=== PATIENT | male | born 1940 | race Caucasian/White ===

== ENCOUNTER 2017-04-12 20:12 | Inpatient (IN) | payer MEDICARE, OTHER ==
[~2017-04-12] VITALS: Ht 172.7 cm; Wt 94.2 kg
[~2017-04-12 20:12] MED LIST: ALLO100 PO; Ativan0.5 MG PO; Bisoprolol-Hct1 EAC2 PO; CLON.1 PO; LEVSOD100 PO; LOSARTAN POTAS100 MG PO; OMEPRAZOLE MAGN20 MG PO; RANI150
[2017-04-12] MEDS ORDERED: TERA5 (20:56)
[2017-04-12] MEDS ORDERED: ASPI81CH PO (20:56)
[2017-04-12 21:10] LABS: Hematocrit 33.2 % (37.0-53.0); Hemoglobin 11.2 g/dL (13.5-17.5); Mean Corpuscular HGB 29.7 pg (26.0-34.0); Mean Corpuscular HGB Conc 33.7 g/dL (31.5-36.5); Mean Corpuscular Volume 88 fL (80-100); Mean Platelet Volume 12.3 fL (9.1-12.4); Platelet Count 124 K/mm3 (150-400); RDW Coefficient Variation 14.8 % (11.7-14.2); Red Blood Cell Count 3.77 M/mm3 (4.30-5.90); White Blood Cell Count 7.35 K/mm3 (4.00-11.30)
[2017-04-12 21:17] LABS: International Normalized Ratio 1.18; Prothrombin Time Results 12.3 Sec (9.7-11.5)
[2017-04-12 21:30] LABS: Albumin, Blood 3.4 g/dL (3.4-5.0); Albumin/Globulin Ratio 0.8 (0.8-1.8); Bilirubin, Total 0.9 mg/dL (0.1-1.0); Calcium, Blood 8.8 mg/dL (8.5-10.1); Creatinine, Blood 1.41 mg/dL (0.60-1.20); Potassium, Blood 3.3 mmol/L (3.5-5.5); Total Protein, Blood 7.4 g/dL (6.4-8.2); Troponin I 0.106 ng/mL (0.000-0.040)
[2017-04-12 21:34] LABS: BAND PERCENT MAN 3 % (0-8); BASOPHILS ABSOLUTE MAN 0.14 K/mm3 (0.00-0.23); BASOPHILS PERCENT MAN 2 % (0-2); EOSINOPHILS PERCENT MAN 0 % (0-6); LYMPHOCYTES ABSOLUTE MAN 0.36 K/mm3 (0.84-5.20); LYMPHOCYTES PERCENT MAN 5 % (21-46); MONOCYTES ABSOLUTE MAN 0.51 K/mm3 (0.16-1.47); MONOCYTES PERCENT MAN 7 % (4-13); NEUTROPHILS ABSOLUTE MAN 6.32 K/mm3 (1.96-9.15); SEG NEUTROPHILS PERCENT MAN 83 % (41-73); TOTAL CELLS COUNTED 100
[2017-04-12 21:45] LABS: Influenza A Negative (NEGATIVE); Influenza B Negative (NEGATIVE)
[2017-04-12 22:04] LABS: pH Blood Arterial 7.45 (7.35-7.45)
[2017-04-13] MEDS ORDERED: ALLO300 PO (00:25)
[2017-04-13] MEDS ORDERED: RANI150 PO (00:30)
[2017-04-13] MEDS ORDERED: TERA5 PO (00:33)
[2017-04-13 04:49] LABS: BASOPHILS ABSOLUTE AUTO 0.01 K/mm3 (0.00-0.23); BASOPHILS PERCENT AUTO 0 % (0-2); EOSINOPHILS ABSOLUTE AUTO 0.01 K/mm3 (0.00-0.68); EOSINOPHILS PERCENT AUTO 0 % (0-6); Hematocrit 32.4 % (37.0-53.0); IMMATURE GRAN ABSOLUTE AUTO 0.02 K/mm3 (0.00-0.10); IMMATURE GRAN PERCENT AUTO 0 % (0-1); LYMPHOCYTES ABSOLUTE AUTO 0.57 K/mm3 (0.84-5.20); LYMPHOCYTES PERCENT AUTO 10 % (21-46); MONOCYTES ABSOLUTE AUTO 0.96 K/mm3 (0.16-1.47); MONOCYTES PERCENT AUTO 16 % (4-13); Mean Corpuscular HGB 30.1 pg (26.0-34.0); Mean Corpuscular Volume 89 fL (80-100); Mean Platelet Volume 11.8 fL (9.1-12.4); NEUTROPHILS PERCENT AUTO 74 % (41-73); Platelet Count 114 K/mm3 (150-400); RDW Coefficient Variation 14.9 % (11.7-14.2); RDW Standard Deviation 48.5 fL (35.1-46.3); Red Blood Cell Count 3.66 M/mm3 (4.30-5.90); White Blood Cell Count 5.97 K/mm3 (4.00-11.30)
[2017-04-13 05:10] LABS: Bun/Creatinine Ratio 16.9 (12.0-20.0); Calcium, Blood 8.1 mg/dL (8.5-10.1); Creatine Kinase MB 1.4 ng/mL (0.0-3.6); Creatine Kinase MB Index 0.5 (0.0-4.0); Creatinine, Blood 1.3 mg/dL (0.60-1.20); Potassium, Blood 3.4 mmol/L (3.5-5.5); Troponin I 0.075 ng/mL (0.000-0.040)
[2017-04-13 12:27] LABS: Creatine Kinase MB Index 0.8 (0.0-4.0); Troponin I 0.208 ng/mL (0.000-0.040)
[2017-04-14 05:08] LABS: BASOPHILS PERCENT AUTO 0 % (0-2); EOSINOPHILS ABSOLUTE AUTO 0.01 K/mm3 (0.00-0.68); EOSINOPHILS PERCENT AUTO 0 % (0-6); Hematocrit 30.2 % (37.0-53.0); Hemoglobin 10.2 g/dL (13.5-17.5); IMMATURE GRAN ABSOLUTE AUTO 0.01 K/mm3 (0.00-0.10); IMMATURE GRAN PERCENT AUTO 0 % (0-1); LYMPHOCYTES ABSOLUTE AUTO 0.74 K/mm3 (0.84-5.20); LYMPHOCYTES PERCENT AUTO 12 % (21-46); MONOCYTES ABSOLUTE AUTO 0.45 K/mm3 (0.16-1.47); MONOCYTES PERCENT AUTO 7 % (4-13); Mean Corpuscular HGB 29.8 pg (26.0-34.0); Mean Corpuscular HGB Conc 33.8 g/dL (31.5-36.5); Mean Corpuscular Volume 88 fL (80-100); Mean Platelet Volume 12.6 fL (9.1-12.4); NEUTROPHILS ABSOLUTE AUTO 4.97 K/mm3 (1.96-9.15); NEUTROPHILS PERCENT AUTO 80 % (41-73); Platelet Count 117 K/mm3 (150-400); RDW Standard Deviation 48.7 fL (35.1-46.3); Red Blood Cell Count 3.42 M/mm3 (4.30-5.90); White Blood Cell Count 6.18 K/mm3 (4.00-11.30)
[2017-04-14 05:37] LABS: Anion Gap 9 mmol/L (6-16); Blood Urea Nitrogen 20 mg/dL (8-24); Bun/Creatinine Ratio 17.1 (12.0-20.0); CO2, Blood 24 mmol/L (21-32); Calcium, Blood 7.6 mg/dL (8.5-10.1); Chloride, Blood 102 mmol/L (98-108); Creatinine, Blood 1.17 mg/dL (0.60-1.20); Glomerular Filtration Rate >60 (60-); Glucose, Blood 112 mg/dL (70-99); Potassium, Blood 3.3 mmol/L (3.5-5.5); Sodium, Blood 135 mmol/L (136-145)
[2017-04-15 05:59] LABS: Anion Gap 9 mmol/L (6-16); Blood Urea Nitrogen 18 mg/dL (8-24); Bun/Creatinine Ratio 16.1 (12.0-20.0); CO2, Blood 26 mmol/L (21-32); Calcium, Blood 8.1 mg/dL (8.5-10.1); Chloride, Blood 102 mmol/L (98-108); Creatinine, Blood 1.12 mg/dL (0.60-1.20); Glomerular Filtration Rate >60 (60-); Glucose, Blood 102 mg/dL (70-99); Potassium, Blood 3.3 mmol/L (3.5-5.5); Sodium, Blood 137 mmol/L (136-145)
[2017-04-16 05:30] LABS: BASOPHILS ABSOLUTE AUTO 0.01 K/mm3 (0.00-0.23); BASOPHILS PERCENT AUTO 0 % (0-2); EOSINOPHILS ABSOLUTE AUTO 0.13 K/mm3 (0.00-0.68); EOSINOPHILS PERCENT AUTO 2 % (0-6); Hematocrit 30.6 % (37.0-53.0); Hemoglobin 10.3 g/dL (13.5-17.5); IMMATURE GRAN ABSOLUTE AUTO 0.04 K/mm3 (0.00-0.10); IMMATURE GRAN PERCENT AUTO 1 % (0-1); LYMPHOCYTES ABSOLUTE AUTO 0.74 K/mm3 (0.84-5.20); LYMPHOCYTES PERCENT AUTO 13 % (21-46); MONOCYTES ABSOLUTE AUTO 0.76 K/mm3 (0.16-1.47); MONOCYTES PERCENT AUTO 13 % (4-13); Mean Corpuscular HGB Conc 33.7 g/dL (31.5-36.5); Mean Corpuscular Volume 89 fL (80-100); Mean Platelet Volume 12.7 fL (9.1-12.4); NEUTROPHILS ABSOLUTE AUTO 4.05 K/mm3 (1.96-9.15); NEUTROPHILS PERCENT AUTO 71 % (41-73); Platelet Count 149 K/mm3 (150-400); RDW Coefficient Variation 15.2 % (11.7-14.2); RDW Standard Deviation 50.1 fL (35.1-46.3); Red Blood Cell Count 3.43 M/mm3 (4.30-5.90); White Blood Cell Count 5.73 K/mm3 (4.00-11.30)
[2017-04-16 05:43] LABS: Albumin, Blood 2.8 g/dL (3.4-5.0); Anion Gap 8 mmol/L (6-16); Blood Urea Nitrogen 21 mg/dL (8-24); Bun/Creatinine Ratio 16.7 (12.0-20.0); CO2, Blood 29 mmol/L (21-32); Calcium, Blood 8.9 mg/dL (8.5-10.1); Chloride, Blood 102 mmol/L (98-108); Creatinine, Blood 1.26 mg/dL (0.60-1.20); Glomerular Filtration Rate 59 (60-); Glucose, Blood 97 mg/dL (70-99); Phosphorus, Blood 2.6 mg/dL (2.5-4.9); Potassium, Blood 3.3 mmol/L (3.5-5.5); Sodium, Blood 139 mmol/L (136-145)
[2017-04-17 05:51] LABS: BASOPHILS ABSOLUTE AUTO 0.01 K/mm3 (0.00-0.23); BASOPHILS PERCENT AUTO 0 % (0-2); EOSINOPHILS ABSOLUTE AUTO 0.18 K/mm3 (0.00-0.68); EOSINOPHILS PERCENT AUTO 3 % (0-6); Hematocrit 31.5 % (37.0-53.0); Hemoglobin 10.9 g/dL (13.5-17.5); IMMATURE GRAN ABSOLUTE AUTO 0.04 K/mm3 (0.00-0.10); IMMATURE GRAN PERCENT AUTO 1 % (0-1); LYMPHOCYTES ABSOLUTE AUTO 0.65 K/mm3 (0.84-5.20); LYMPHOCYTES PERCENT AUTO 12 % (21-46); MONOCYTES ABSOLUTE AUTO 0.57 K/mm3 (0.16-1.47); MONOCYTES PERCENT AUTO 10 % (4-13); Mean Corpuscular HGB 30.2 pg (26.0-34.0); Mean Corpuscular HGB Conc 34.6 g/dL (31.5-36.5); Mean Corpuscular Volume 87 fL (80-100); Mean Platelet Volume 11.9 fL (9.1-12.4); NEUTROPHILS ABSOLUTE AUTO 4.02 K/mm3 (1.96-9.15); NEUTROPHILS PERCENT AUTO 74 % (41-73); Platelet Count 153 K/mm3 (150-400); RDW Coefficient Variation 14.9 % (11.7-14.2); RDW Standard Deviation 47.3 fL (35.1-46.3); Red Blood Cell Count 3.61 M/mm3 (4.30-5.90); White Blood Cell Count 5.47 K/mm3 (4.00-11.30)
[2017-04-17 06:10] LABS: Anion Gap 8 mmol/L (6-16); Blood Urea Nitrogen 21 mg/dL (8-24); Bun/Creatinine Ratio 18.4 (12.0-20.0); CO2, Blood 27 mmol/L (21-32); Calcium, Blood 9.1 mg/dL (8.5-10.1); Chloride, Blood 102 mmol/L (98-108); Creatinine, Blood 1.14 mg/dL (0.60-1.20); Glomerular Filtration Rate >60 (60-); Glucose, Blood 104 mg/dL (70-99); Phosphorus, Blood 2.9 mg/dL (2.5-4.9); Potassium, Blood 3.4 mmol/L (3.5-5.5); Sodium, Blood 137 mmol/L (136-145)
[2017-04-17] MEDS ORDERED: Albuterol2.5 MG/0.5 INH (12:43)
[2017-04-17] MEDS ORDERED: CLOP75 PO (12:44)
[2017-04-17] MEDS ORDERED: ATOR40TA PO (12:44)
[2017-04-17] MEDS ORDERED: DULERA 200 MCG/13 GM (12:45)
[2017-04-17] MEDS ORDERED: SPIR50 PO (12:47)
[2017-04-17] MEDS ORDERED: TORSE20 PO (12:48)
[2017-04-17] MEDS ORDERED: LEVO750 PO (12:49)
[2017-04-17] MEDS ORDERED: POTA10T PO (12:49)
[2017-05-29] MEDS ORDERED: Aspirin EC81 MG PO (12:17)
[2017-05-29] MEDS ORDERED: VITAMIN D5000 UNI1 PO (12:21)
[2017-07-30] MEDS ORDERED: ELIQUIS5 MG PO (10:40)
[2017-07-30] MEDS ORDERED: Amiodarone HCl200 MG PO (10:40)
[2017-07-30] MEDS ORDERED: METO50 PO (10:41)
== END 2017-04-17 13:12 | disposition home or self-care (01) | DRG 193 ==
LOC: ER 20:12 → MEDS 22:32 → PCU 22:32 → MEDS 04-13 12:30
PROVIDERS: Family Medicine; Internal Medicine
DX: J18.9 Pneumonia, unspecified organism (principal); J96.01 Acute respiratory failure with hypoxia; I50.33 Acute on chronic diastolic (congestive) heart failure; N17.9 Acute kidney failure, unspecified; D69.6 Thrombocytopenia, unspecified; I24.8 Other forms of acute ischemic heart disease; N18.3 Chronic kidney disease, stage 3 (moderate); D63.1 Anemia in chronic kidney disease; I13.0 Hypertensive heart and chronic kidney disease with heart failure and stage 1 through stage 4 chronic kidney disease, or unspecified chronic kidney disease; E03.9 Hypothyroidism, unspecified; K21.9 Gastro-esophageal reflux disease without esophagitis; M10.9 Gout, unspecified; N40.0 Benign prostatic hyperplasia without lower urinary tract symptoms; F41.9 Anxiety disorder, unspecified; J45.909 Unspecified asthma, uncomplicated; I25.10 Atherosclerotic heart disease of native coronary artery without angina pectoris; I25.2 Old myocardial infarction; E87.6 Hypokalemia; I34.0 Nonrheumatic mitral (valve) insufficiency; Z86.010 Personal history of colon polyps; Z79.82 Long term (current) use of aspirin; Z79.899 Other long term (current) drug therapy; Z88.2 Allergy status to sulfonamides
CPT/HCPCS: 36415; 36600; 71020; 80048; 80053; 80069; 82550; 82553; 82803; 83605; 83880; 84145; 84484; 85007; 85025; 85027; 85610; 87040; 87070; 87205; 87449; 87804; 93005; 93010; 93306; 94640; 94760; 94762; 96361; 96365; 96368; 96372; 99285; J0360; J0456; J0696; J1650; J1940; J2405; J7030; J7050

== ENCOUNTER 2017-06-01 06:45 | Day surgery (SDC) | payer MEDICARE, OTHER ==
[~2017-06-01] VITALS: Ht 172.7 cm; Wt 90.5 kg
[~2017-06-01 06:45] MED LIST changes: +ALLO300 PO; +ASPI81CH PO; +ATOR40TA PO; +Albuterol2.5 MG/0.5 INH; +Aspirin EC81 MG PO; +CLOP75 PO; +DULERA 200 MCG/13 GM; +LEVO750 PO; +POTA10T PO; +RANI150 PO; +SPIR50 PO; +TERA5; +TERA5 PO; +TORSE20 PO; +VITAMIN D5000 UNI1 PO
[2017-06-01] MEDS ORDERED: AMLO5 PO (07:21)
[2017-06-01] MEDS ORDERED: LOSA50 PO (07:21)
[2017-07-30] MEDS ORDERED: Amiodarone HCl200 MG PO (10:40)
[2017-07-30] MEDS ORDERED: ELIQUIS5 MG PO (10:40)
[2017-07-30] MEDS ORDERED: METO50 PO (10:41)
== END 2017-06-01 09:30 | disposition home or self-care (01) ==
LOC: MHTC 06:45
DX: I25.10 Atherosclerotic heart disease of native coronary artery without angina pectoris (principal); I34.0 Nonrheumatic mitral (valve) insufficiency; R00.1 Bradycardia, unspecified; I13.0 Hypertensive heart and chronic kidney disease with heart failure and stage 1 through stage 4 chronic kidney disease, or unspecified chronic kidney disease; N18.9 Chronic kidney disease, unspecified; I50.30 Unspecified diastolic (congestive) heart failure; I27.29 Other secondary pulmonary hypertension; E03.9 Hypothyroidism, unspecified; Z79.899 Other long term (current) drug therapy; Z79.82 Long term (current) use of aspirin; Z88.2 Allergy status to sulfonamides; Z88.5 Allergy status to narcotic agent
CPT/HCPCS: 93458; 99152; C1769; C1894; J0360; J1644; J2250; J3010; J7030; Q9967

== ENCOUNTER → 2019-03-22 | Outpatient (CLI) | payer MEDICARE, OTHER ==
[~2019-03-22] MED LIST changes: +AMLO5 PO; +Amiodarone HCl200 MG PO; +Bisoprolol Fuma10 MG PO; +ELIQUIS5 MG PO; +LISI20 PO; +LOSA50 PO; +MAGNESIUM; +METO50 PO; +VITAMIN D; +ZYLOPRIM300 MG PO
[2019-03-22 20:04] LABS: Campylobacter Sp Not Detected (NOT DETECT)
[2019-03-22 20:05] LABS: Adenovirus F 40/41 Not Detected (NOT DETECT); Astrovirus Not Detected (NOT DETECT); Cryptosporidium Not Detected (NOT DETECT); Cyclospora Cayetanensis Not Detected (NOT DETECT); E. Coli O157 Not Detected (NOT DETECT); Entamoeba Histolytica Not Detected (NOT DETECT); Enteroaggregative E. coli-EAEC Not Detected (NOT DETECT); Enteropathogenic E. coli-EPEC Not Detected (NOT DETECT); Enterotoxigenic E. coli-ETEC Not Detected (NOT DETECT); Giardia Lamblia Not Detected (NOT DETECT); Norovirus GI/GII Not Detected (NOT DETECT); Plesiomonas Shigelloides Not Detected (NOT DETECT); Rotavirus A Not Detected (NOT DETECT); Salmonella Sp Not Detected (NOT DETECT); Sapovirus Not Detected (NOT DETECT); Shiga Toxin-prod E. coli-STEC Not Detected (NOT DETECT); Shigella/Enteroin E. coli-EIEC Not Detected (NOT DETECT); Vibrio Cholerae Not Detected (NOT DETECT); Vibrio Sp Not Detected (NOT DETECT); Yersinia Enterocolitica Not Detected (NOT DETECT)
== END | disposition home or self-care (01) ==
LOC: LAB SHORT 16:26 → LAB 16:26 → LAB FUT 03-22 11:00
PROVIDERS: Family Medicine
DX: A09 Infectious gastroenteritis and colitis, unspecified (principal)
CPT/HCPCS: 0097U

== ENCOUNTER → 2019-06-13 | Outpatient (CLI) | payer MEDICARE, OTHER | END | disposition home or self-care (01) | LOC: LAB SHORT 15:51 → PLD 15:51 | DX: D48.5 Neoplasm of uncertain behavior of skin (principal) | CPT/HCPCS: 88305 ==

== ENCOUNTER 2020-07-25 12:39 | Day surgery (SDC) | payer MEDICARE, OTHER ==
[~2020-07-25] VITALS: Ht 172.7 cm; Wt 88.3 kg
[~2020-07-25 12:39] MED LIST changes: +PANT40; +THERA-D2000 UNIT PO; -VITAMIN D
[2020-07-25] MEDS ORDERED: ELIQUIS5 MG PO (13:17)
[2020-07-25] MEDS ORDERED: ESOM20 PO (13:18)
[2020-07-25] MEDS ORDERED: ALLO300 PO (13:18)
--- NOTE | 2020-07-25 13:39 | NUR ---
07/25/20 1339 Yazmin Ellington 1ST I.V. ATTEMPT IN RIGHT HAND BY OCTAVIA 2ND I.V. ATTEMPT IN LEFT HAND BY OCTAVIA 3 RD I.V. ATTEMPT IN LEFT AC BY LIZETTE 4TH I.V. ATTEMPT IN LEFT AC
[2020-11-09] MEDS ORDERED: PANT40 PO (07:09)
[2020-11-09] MEDS ORDERED: SPIR25 PO (07:10)
[2020-11-09] MEDS ORDERED: ENTRESTO 24 MG1 EACH PO (07:10)
[2020-11-09] MEDS ORDERED: AMOX500 PO (07:11)
[2020-11-09] MEDS ORDERED: PROAIR RESPICL90 MCG INH (07:12)
== END 2020-07-25 15:00 | disposition home or self-care (01) ==
LOC: ORSCSDS 12:39
PROVIDERS: Internal Medicine Gastroenterology
PROC: 0DBM8ZX Excision of Descending Colon, Via Natural or Artificial Opening Endoscopic, Diagnostic (ICD-10-PCS; principal; 2020-07-25 14:00)
PROC: 0DBN8ZX Excision of Sigmoid Colon, Via Natural or Artificial Opening Endoscopic, Diagnostic (ICD-10-PCS; principal; 2020-07-25 14:00)
DX: Z12.11 Encounter for screening for malignant neoplasm of colon (principal); Z86.010 Personal history of colon polyps; D12.5 Benign neoplasm of sigmoid colon; D12.4 Benign neoplasm of descending colon; K21.9 Gastro-esophageal reflux disease without esophagitis; E66.9 Obesity, unspecified; R10.13 Epigastric pain; Z68.30 Body mass index [BMI] 30.0-30.9, adult; Z79.899 Other long term (current) drug therapy
CPT/HCPCS: 88305; J2704; J7120

== ENCOUNTER 2020-09-20 15:17 | Inpatient (IN) | payer MEDICARE, OTHER ==
[~2020-09-20] VITALS: Ht 172.7 cm; Wt 87.4 kg
[~2020-09-20 15:17] MED LIST changes: +ESOM20 PO
[2020-09-20 15:55] LABS: BASOPHILS ABSOLUTE AUTO 0.01 K/mm3 (0.00-0.23); BASOPHILS PERCENT AUTO 0 % (0-2); EOSINOPHILS ABSOLUTE AUTO 0.03 K/mm3 (0.00-0.68); EOSINOPHILS PERCENT AUTO 0 % (0-6); Hematocrit 34.8 % (37.0-53.0); Hemoglobin 11.6 g/dL (13.5-17.5); IMMATURE GRAN ABSOLUTE AUTO 0.07 K/mm3 (0.00-0.10); IMMATURE GRAN PERCENT AUTO 1 % (0-1); LYMPHOCYTES ABSOLUTE AUTO 0.64 K/mm3 (0.84-5.20); LYMPHOCYTES PERCENT AUTO 7 % (21-46); MONOCYTES ABSOLUTE AUTO 0.81 K/mm3 (0.16-1.47); MONOCYTES PERCENT AUTO 8 % (4-13); Mean Corpuscular HGB 29.5 pg (26.0-34.0); Mean Corpuscular HGB Conc 33.3 g/dL (31.5-36.5); Mean Corpuscular Volume 89 fL (80-100); Mean Platelet Volume 11.9 fL (9.1-12.4); NEUTROPHILS ABSOLUTE AUTO 8.13 K/mm3 (1.96-9.15); NEUTROPHILS PERCENT AUTO 84 % (41-73); Platelet Count 220 K/mm3 (150-400); RDW Coefficient Variation 15.7 % (11.7-14.2); RDW Standard Deviation 50.9 fL (35.1-46.3); Red Blood Cell Count 3.93 M/mm3 (4.30-5.90); White Blood Cell Count 9.69 K/mm3 (4.00-11.30)
[2020-09-20 16:09] LABS: Albumin, Blood 3.3 g/dL (3.4-5.0); Albumin/Globulin Ratio 0.9 (0.8-1.8); Bilirubin, Total 1.1 mg/dL (0.1-1.0); Bun/Creatinine Ratio 20.5 (12.0-20.0); Calcium, Blood 9.1 mg/dL (8.5-10.1); Creatinine, Blood 1.9 mg/dL (0.60-1.20); Globulin, Blood 3.7 g/dL (2.2-4.0); Potassium, Blood 4.5 mmol/L (3.5-5.5); Troponin I 0.022 ng/mL (0.000-0.040)
[2020-09-20] MEDS ORDERED: ENTRESTO 97 MG1 EAC3 PO (17:37)
[2020-09-20] MEDS ORDERED: DILTIAZEM 24HR240 M3 PO (17:38)
[2020-09-20] MEDS ORDERED: BUME1 PO (17:38)
[2020-09-20] MEDS ORDERED: KLOR-CON 1010 ME2 PO (17:39)
[2020-09-20] MEDS ORDERED: SYNTHROID100 MC6 PO (17:39)
[2020-09-20] MEDS ORDERED: SPIRONOLACTONE25 MG PO (17:39)
[2020-09-20] MEDS ORDERED: ESOM20 PO (18:32)
--- NOTE | 2020-09-20 19:32 | NUR ---
REPORT RECIEVED REPORT RECIEVED FROM ED, RN. PT TRANSFERRED TO UNIT BY BED. VS STABLE. ADMIT STARTED, REPORT GIVEN TO NOC SHIFT RN.
[2020-09-21 04:22] LABS: BASOPHILS ABSOLUTE AUTO 0.03 K/mm3 (0.00-0.23); BASOPHILS PERCENT AUTO 0 % (0-2); EOSINOPHILS ABSOLUTE AUTO 0.06 K/mm3 (0.00-0.68); EOSINOPHILS PERCENT AUTO 1 % (0-6); Hematocrit 36.2 % (37.0-53.0); Hemoglobin 12.4 g/dL (13.5-17.5); IMMATURE GRAN PERCENT AUTO 1 % (0-1); LYMPHOCYTES ABSOLUTE AUTO 0.69 K/mm3 (0.84-5.20); LYMPHOCYTES PERCENT AUTO 7 % (21-46); MONOCYTES ABSOLUTE AUTO 1.07 K/mm3 (0.16-1.47); MONOCYTES PERCENT AUTO 11 % (4-13); Mean Corpuscular HGB 29.9 pg (26.0-34.0); Mean Corpuscular HGB Conc 34.3 g/dL (31.5-36.5); Mean Corpuscular Volume 87 fL (80-100); Mean Platelet Volume 12.2 fL (9.1-12.4); NEUTROPHILS PERCENT AUTO 80 % (41-73); Platelet Count 157 K/mm3 (150-400); RDW Coefficient Variation 15.7 % (11.7-14.2); RDW Standard Deviation 49.5 fL (35.1-46.3); Red Blood Cell Count 4.15 M/mm3 (4.30-5.90); White Blood Cell Count 9.95 K/mm3 (4.00-11.30)
[2020-09-21 04:28] LABS: Bun/Creatinine Ratio 20.4 (12.0-20.0); Calcium, Blood 9.1 mg/dL (8.5-10.1); Creatinine, Blood 2.01 mg/dL (0.60-1.20); Magnesium, Blood 2.2 mg/dL (1.6-2.4); Potassium, Blood 4.1 mmol/L (3.5-5.5)
--- NOTE | 2020-09-21 07:38 | NUR ---
SHIFT SUMMARY PT AOX4, APPEARED SOB T/O NIGHT AND C/O EPISODES OF BREATHLESSNESS. CONCERN FOR SLEEP APNEA DUE TO SATS DOWN IN 80'S WHILE PT RESTING IN BED, GHASSAN BAUER WITNESSED PERIODS OF APNEA IN BRIEF MOMENTS PT WAS SLEEPING. SLEEP STUDY ATTEMPTED T/O NIGHT. INCOMPLETE DUE TO PT AWAKE FREQUENTLY AND NEED FOR MEDS FOR HR AND SX T/O NIGHT. PT PLACED ON 2 L VIA NC DUE TO SATS VARIABLE 80'S-LOW 90'S ON RA. PT AFIV RVR T/O NIGHT VARYING 110'S-140'S WITH EPISODES OF HR IN 150'S-160'S WITH WALKING TO BATHROOM. GHASSAN BAUER CALLED HOSPITALIST AND ORDERS PLACED FOR METOPROLOL IV PUSHES, DIGOXIN IV, AND LASIX IV T/O NIGHT FOR CONTINUED TACHYARDIA AND SX OF SOB. PT HAD BM IN THE NIGHT FOLLOWING GIVEN PRUNE JUICE BY GHASSAN BAUER. STATED RELIEF FROM BLOATING AND ABD DISCOMFORT. PT USED URINAL AT BEDSIDE INDEPENDENTLY. CONSISTENT OUTPUT T/O NIGHT. 18 GAUGE IN L LOWER ARM WNL. SLIGHTLY HTN WITH SYSTOLIC IN 150'S-160'S AND DIASTOLIC IN 100'S. NPO AFTER MIDNIGHT FOR POSSIBLE CARDIOVERSION THIS AM.
--- NOTE | 2020-09-21 08:00 | NUR ---
pt laying in bed awake a/ox3, pleasant and cooperative with care, follows commands well, denies pain or sob, lungs are clear t/o, resp even and unlaobred, no cough noted, hrr, tele in place running afib per monitor, see strip, no edema noted, ppp+2, cap refill <3sec, vs stable, afebrile, iv site to left hand is clear and patent, btx4, abd flat soft nontender, voids without diff, skin c/w/d, maew, liset, call light in reach.
--- NOTE | 2020-09-21 12:13 | NUR ---
Patient is sitting up in bed and alert. Patient tells me about his medical history, his current symptoms and his concerns going forward. Patient then talks at length about his life growing up and the giuseppe and family values that were instilled within him. Patient shares about the love and struggles that his life has gone through. He enjoys talking about his grown kids and their families. I reinforce helpful attitudes and practices and provide therapeutic listening, spiritual guidance and prayer. Patient responds well and shows signs of reduced stress.
--- NOTE | 2020-09-21 18:06 | NUR ---
pt resting in bed, in to see him, Dr. Self was in to see him. He had a shower, states he feels better after, no further changes this shift. call light in reach.
--- NOTE | 2020-09-22 05:38 | NUR ---
SHIFT SUMMARY NO ACUTE CHANGES THIS SHIFT. VSS. IN AFIB STILL BUT MOSTLY HR IN 80'S - 90'S. SLEEP STUDY COMPLETED THIS SHIFT. PT AXO. PT DENYING CP THIS SHIFT. PT HAS RESTED FOR MOST OF SHIFT. BP CONTROLLED. USES CALL LIGHT APPROPRIATELY.
[2020-09-22 06:41] LABS: Anion Gap 8 mmol/L (6-16); Blood Urea Nitrogen 41 mg/dL (8-24); Bun/Creatinine Ratio 20.9 (12.0-20.0); CHOL/HDL RATIO 3.5; CO2, Blood 28 mmol/L (21-32); Calcium, Blood 8.7 mg/dL (8.5-10.1); Chloride, Blood 99 mmol/L (98-108); Cholesterol 114 mg/dL (50-200); Creatinine, Blood 1.96 mg/dL (0.60-1.20); Glomerular Filtration Rate 35 (60-); Glucose, Blood 118 mg/dL (70-99); HDL Cholesterol 33 mg/dL (>39); LDL/HDL RATIO 2.1; Low Density Lipoprotein Chol 71 mg/dL (0-110); Magnesium, Blood 2.2 mg/dL (1.6-2.4); Potassium, Blood 3.2 mmol/L (3.5-5.5); Sodium, Blood 135 mmol/L (136-145); Triglycerides 51 mg/dL (30-160); Very Low Density Lipoprot Chol 10 mg/dL (6-32)
--- NOTE | 2020-09-22 08:00 | NUR ---
PT LAYING IN BED AWAKE A/OX3, PLEASANT AND COOPERATIVE WITH CARE, FOLLOWS COMMANDS WELL, DENIES ANY PAIN, STATES HE HAD A GOOD NIGHT LAST NIGHT, FEELS PRETTY WELL THIS AM, LUNGS ARE CLEAR T/O, A BIT DIM IN BASES, RESP EVEN AND UNLABORED, NO COUGH NOTED, HRIRR, TELE IN PLACE RUNNING AFIB PER MONITOR, SEE STRIP, NO EDEMA NOTED, PPP+2, CAP REFILL <3SEC, VS STABLE, AFEBRILE, IV SITE IS CLEAR AND PATENT, BTX4, ABD FLAT SOFT NONTENDER, VOIDS WITHOUT DIFF, SKIN C/W/D, MAEW, ANDRÉS, CALL LIGHT IN REACH.
--- NOTE | 2020-09-22 19:14 | NUR ---
PT UP TO CHAIR FOR MEALS TODAY, IN TO VISIT. HE FEELS PRETTY GOOD, IS ANXIOUS ABOUT GOING HOME. NO ACUTE CHANGES TODAY, CALL LIGHT IN REACH.
[2020-09-23 04:32] LABS: Anion Gap 6 mmol/L (6-16); Blood Urea Nitrogen 33 mg/dL (8-24); Bun/Creatinine Ratio 19.8 (12.0-20.0); CO2, Blood 29 mmol/L (21-32); Calcium, Blood 8.9 mg/dL (8.5-10.1); Chloride, Blood 100 mmol/L (98-108); Creatinine, Blood 1.67 mg/dL (0.60-1.20); Digoxin (Lanoxin) 0.58 ug/mL (0.80-2.00); Glomerular Filtration Rate 42 (60-); Glucose, Blood 100 mg/dL (70-99); Magnesium, Blood 2.1 mg/dL (1.6-2.4); Potassium, Blood 3.5 mmol/L (3.5-5.5); Sodium, Blood 135 mmol/L (136-145)
--- NOTE | 2020-09-23 05:34 | NUR ---
SHIFT SUMMARRY NO ACUTE CHANGES THIS SHIFT. VSS. DENYING CP/PRESSURE. IN AFIC, HR 90'S - 100'S W/ OCCASIONAL PVC'S. PT ANXIOUS AT TIMES BUT IS EASILY REASSURABLE WITH EDUCATION AND DISCUSSION. OTHERWISE, NO EVENTS THIS SHIFT NOTED. PT RESTING T/O SHIFT.
[2020-09-23] MEDS ORDERED: METO50ER PO (08:37)
[2020-09-23] MEDS ORDERED: AMLO5 PO (08:37)
[2020-09-23] MEDS ORDERED: HYDRA25 PO (08:40)
[2020-09-23] MEDS ORDERED: LANOXIN125 MCG PO (08:40)
[2020-09-23] MEDS ORDERED: Imdur-ER60 MG PO (08:41)
[2020-09-23] MEDS ORDERED: PRAVASTATIN SOD40 MG PO (08:41)
--- NOTE | 2020-09-23 12:04 | NUR ---
DISCHARGE SUMMARY: DISCHARGE SUMMARY WAS GONE THROUGH BY Kelly ORTEZ, PATIENT HAD CLEAR UNDERSTANDING THAT MULTIPLE NEW MEDS WERE BEING ANDED AND TWO MEDS WERE BEING DISCONTINUED, PATIENTS WAS PRESENT AND HAD NO FURTHER QUESTIONS. PATIENT LEFT ARM IV WAS DC'D WNL, PATIENT WAS WHEELED TO PASSENGER SIDE OF VEHICLE AND ASSISTED IN. PATIENT AGREED TO THE PLAN AND ALREADY HAD A FOLLOW UP IN PLACE FOR SEEING CARDIOLOGY THURSDAY. PATIENT DENIES SOB, CHEST PAIN. TELEMETRY REMOVED BY PATIENT POWER GENERATION ENGINEER.
[2020-11-09] MEDS ORDERED: PANT40 PO (07:09)
[2020-11-09] MEDS ORDERED: SPIR25 PO (07:10)
[2020-11-09] MEDS ORDERED: ENTRESTO 24 MG1 EACH PO (07:10)
[2020-11-09] MEDS ORDERED: AMOX500 PO (07:11)
[2020-11-09] MEDS ORDERED: PROAIR RESPICL90 MCG INH (07:12)
== END 2020-09-23 12:20 | disposition home or self-care (01) | DRG 291 ==
LOC: ER 15:17 → PCU 16:46
PROVIDERS: Emergency Medicine; Internal Medicine Cardiovascular Disease; ADMIT Family Medicine
DX: I13.0 Hypertensive heart and chronic kidney disease with heart failure and stage 1 through stage 4 chronic kidney disease, or unspecified chronic kidney disease (principal); I50.43 Acute on chronic combined systolic (congestive) and diastolic (congestive) heart failure; N17.9 Acute kidney failure, unspecified; E87.1 Hypo-osmolality and hyponatremia; E03.9 Hypothyroidism, unspecified; D63.1 Anemia in chronic kidney disease; K21.9 Gastro-esophageal reflux disease without esophagitis; I48.0 Paroxysmal atrial fibrillation; N18.30 Chronic kidney disease, stage 3 unspecified; I27.20 Pulmonary hypertension, unspecified; I25.5 Ischemic cardiomyopathy; I43 Cardiomyopathy in diseases classified elsewhere; E87.6 Hypokalemia; E78.5 Hyperlipidemia, unspecified; M10.9 Gout, unspecified; J44.9 Chronic obstructive pulmonary disease, unspecified; I42.8 Other cardiomyopathies; I25.10 Atherosclerotic heart disease of native coronary artery without angina pectoris; I07.1 Rheumatic tricuspid insufficiency; Z88.2 Allergy status to sulfonamides; Z88.5 Allergy status to narcotic agent; Z95.1 Presence of aortocoronary bypass graft; Z88.8 Allergy status to other drugs, medicaments and biological substances; Z98.890 Other specified postprocedural states; Z79.899 Other long term (current) drug therapy; Z79.01 Long term (current) use of anticoagulants
CPT/HCPCS: 36415; 71045; 80048; 80053; 80061; 80162; 83735; 83880; 84443; 84484; 85025; 93005; 93010; 93308; 93321; 94762; 96374; 96375; 99285-25; A9270; J1160; J1940

== ENCOUNTER 2020-11-09 10:42 | Day surgery (SDC) | payer MEDICARE, OTHER ==
[~2020-11-09] VITALS: Ht 172.7 cm; Wt 84.0 kg
[~2020-11-09 10:42] MED LIST changes: +AMOX500 PO; +BUME1 PO; +DILTIAZEM 24HR240 M3 PO; +ENTRESTO 24 MG1 EACH PO; +ENTRESTO 97 MG1 EAC3 PO; +HYDRA25 PO; +Imdur-ER60 MG PO; +KLOR-CON 1010 ME2 PO; +LANOXIN125 MCG PO; +METO50ER PO; +PANT40 PO; +PRAVASTATIN SOD40 MG PO; +PROAIR RESPICL90 MCG INH; +SPIR25 PO; +SPIRONOLACTONE25 MG PO; +SYNTHROID100 MC6 PO
--- NOTE | 2020-11-09 11:07 | NUR ---
PT ARRIVED WITH LIFE VEST IN PLACE.
--- NOTE | 2020-11-09 11:37 | NUR ---
DR. LAKHANI HERE TO DISCUSS PROCEDURE.
--- NOTE | 2020-11-09 11:50 | NUR ---
APSIRIN 325 MG PO GIVEN PER ORDER.
--- NOTE | 2020-11-09 13:50 | NUR ---
PT RETURNED TO RECOVERY ROOM IN BED. RIGHT FEMORAL GROIN SITE STABLE WITH NO HEMATOMA, NO PULSATILE BLEEDING, SOFT NON-TENDER WITH INTACT DRESSING. PT DENIES CHEST PAIN. CALL LIGHT IN REACH. DR LAKHANI IN ROOM TO SEE PT. PT HAS DEFIB PADS ON WITH ZOLL AT BEDSIDE.
--- NOTE | 2020-11-09 14:20 | NUR ---
DR. BRANDTIB HERE TO DISCUSS CARDIOVERSION AND STAGED PCI WITH PT.
[2020-11-09] MEDS ORDERED: Aspir 8181 MG PO (14:49)
[2020-11-09] MEDS ORDERED: Amiodarone HCl200 MG PO (14:49)
--- NOTE | 2020-11-09 15:42 | NUR ---
DISCHARGE INSTRUCTIONS GIVEN WITH VERBAL AND WRITTEN UNDERSTANDING.
--- NOTE | 2020-11-09 16:05 | NUR ---
ASSUMED CARE OF PT. PT IS AWAKE AND ORIENTED, PLEASENT AND COOPERATIVE, DENIES CHEST PAIN. MONITOR AFIB 100-120, B/P 132/95, AFEBRILE, SPO2 94% RA. R GROIN NO SWELLING/HEMATOMA, TEGADERM DRSG INTACT; RLE PULSES 2+ X 2. PT TAKING SIPS OF H20 WITHOUT ISSUE.
--- NOTE | 2020-11-09 16:35 | NUR ---
PT'S HOB ELEVATED, SITE REMAINS UNCHANGED.
--- NOTE | 2020-11-09 17:25 | NUR ---
PT AMB TO BATHROOM WITHOUT ISSUE, SITE UNCHANGED WITH ACTIVITY. PT DRESSED SELF WITHOUT ISSUE, SITE UNCHAGNED; IV REMOVED-CANNULA INTACT.
--- NOTE | 2020-11-09 17:31 | NUR ---
DISCHARGE INSTRUCTIONS, MED LIST AND AFTER CARE INSTRUCTIONS REVIEWED WITH PT AND ; VERBALIZED GOOD UNDERSTANDING. PT LEFT FACILITY VIA W/C, CONDITION STABLE.
== END 2020-11-09 17:31 | disposition home or self-care (01) ==
LOC: MHTC 10:42
DX: I25.810 Atherosclerosis of coronary artery bypass graft(s) without angina pectoris (principal); I25.10 Atherosclerotic heart disease of native coronary artery without angina pectoris; I11.9 Hypertensive heart disease without heart failure; E78.00 Pure hypercholesterolemia, unspecified; E78.5 Hyperlipidemia, unspecified; Z88.1 Allergy status to other antibiotic agents; Z88.5 Allergy status to narcotic agent; Z95.1 Presence of aortocoronary bypass graft
CPT/HCPCS: 76937; 93455; 99152; 99153; A9270; C1760; C1769; C1887; C1894; J1644; J2250; J3010; J7030; Q9967

== ENCOUNTER 2020-12-21 06:07 | Day surgery (SDC) | payer MEDICARE, OTHER ==
[~2020-12-21 06:07] MED LIST changes: +Aspir 8181 MG PO
[2020-12-21] MEDS ORDERED: ALLO300 PO (07:07)
--- NOTE | 2020-12-21 08:01 | NUR ---
PT TOLERATED CARDIOVERSION WELL; THREE ROUNDS OF SYNCHRONIZED 200J SHOCKS DELIVERED WITH TWO ROUNDS OF AMIODARONE 150 MG IVP GIVEN BETWEEN SYNCHRONIZED SHOCKS.
[2020-12-21] MEDS ORDERED: METO50ER PO (08:19)
--- NOTE | 2020-12-21 09:19 | NUR ---
DISCHARGE INSTRUCTIONS REVIEWED ALL QUESTIONS ANSWERED. 20 G IV DISCONTINUED FROM LEFT AC WITH INTACT CANNULA. PT'S LIFE VEST IN PLACE. PT ESCORTED OUT VIA WHEELCHAIR ESCORT.
== END 2020-12-21 09:56 | disposition home or self-care (01) ==
LOC: MHTC 06:07 → ORSCMMR 06:07 → MHTC 06:08 → ORSCMMR 06:08 → MHTC 06:30 → ORSCMMR 06:30 → MHTC 09:56 → ORSCMMR 09:56
DX: I48.19 Other persistent atrial fibrillation (principal); I25.810 Atherosclerosis of coronary artery bypass graft(s) without angina pectoris; I13.0 Hypertensive heart and chronic kidney disease with heart failure and stage 1 through stage 4 chronic kidney disease, or unspecified chronic kidney disease; I50.22 Chronic systolic (congestive) heart failure; N18.9 Chronic kidney disease, unspecified; I25.10 Atherosclerotic heart disease of native coronary artery without angina pectoris; E78.5 Hyperlipidemia, unspecified; E03.9 Hypothyroidism, unspecified; Z95.1 Presence of aortocoronary bypass graft; Z79.82 Long term (current) use of aspirin; Z79.01 Long term (current) use of anticoagulants
CPT/HCPCS: 92960; 93005; 93010; J0282; J2704; J7030

== ENCOUNTER 2021-02-12 07:05 | Day surgery (SDC) | payer MEDICARE, OTHER ==
[~2021-02-12] VITALS: Ht 172.7 cm; Wt 82.9 kg
[2021-02-12] MEDS ORDERED: Amlodipine Bes2.5 MG PO (07:47)
[2021-02-12] MEDS ORDERED: LOSA25 PO (07:47)
--- NOTE | 2021-02-12 16:00 | NUR ---
ASSUMED CARE OF PATIENT AT APPROX 1140; PT ALERT, ORIENTEDx4; CALM AND COOPERATIVE WITH CARE. PT RESTING IN BED. UP WITH SBA AT SIDE OF BED WITH URINAL. PT EDUCATED ON ACTIVITY RESTRICTIONS FOR RIGHT ARM, NEEDING REMINDERS WITH MOVEMENT. ZOLL IN PLACE, LIFE VEST AT BEDSIDE. PT DENIES PAIN, CHEST PAIN, SOB, AND DIZZINESS. PT HAD ONE EPISODE OF [place], MEDICATED PER EMAR. REMOVED 2CC OF AIR, WHEN CHECKED ON SLIGHT AMOUNT OF BLOOD NOTED, HELD OFF ON TAKING ADDITIONAL AIR OUT. REPROT GIVEN TO LIZETTE ALVARADO ASSUMING CARE OF PATIENT AT APPROX 1530.
--- NOTE | 2021-02-12 17:43 | NUR ---
Patient is alert and oriented x4. Able to get up ad boris and on room air. Received from pathology laboratory director at 1500, cath sight is in R radial with pressure on patient. is at bedside. No complaints of pain or distress. Hypertensive, hydralazine given prn as needed. BSSR to be given to night time nurse.
--- NOTE | 2021-02-12 23:12 | NUR ---
CARE ASSUMPTION PT A&OX4. SP02>92% ON RA. TELEMETRY READS AFIB, HR 89'S. HR OCCASSIONALLY INCREASES TO 130'S, THEN DECREASES WITHOUT INTERVENTION. PT HAS R RADIAL SITE, STILL WITH AIR INFLATED, UNKNOWN AMOUNT. SITE SOFT, NO BRUISING, NO HEMATOMA. SOME BLEEDING, DRIED AND RED. BAND FULLY DEFLATED AT 2100. BAND REMOVED AT 2200. OPSITE IN PLACE. ARM BOARD IN PLACE. NS INFUSING PER EMAR. CALL LIGHT IN REACH.
--- NOTE | 2021-02-13 06:20 | NUR ---
SHIFT SUMMARY PT A&OX4. SP02>92% ON RA. TELEMETRY READS AFIB, HR 80'-120'S. OCCASSIONAL BRIEF INCREASES TO 160'S/170'S BUT WOULD DECREASE QUICKLY. PT HAS R RADIAL SITE, TR BAND REMOVED THIS SHIFT. NO BRUISING, NO HEMATOMA, SITE SOFT. ARM BOARD IN PLACE. PT USED URINAL AT BEDSIDE. UP TO COMMODE W/ ONE PERSON ASSIST D/T CORDS/LINES. PT C/O OF NOT BEING ABLE TO SLEEP DUE TO MACHINES/BEEPING. SLEPT APPROX 2 HOURS. EKG DONE THIS AM PER EMAR. FLUIDS INFUSED PER EMAR. CALL LIGHT IN [facility].
[2021-02-13 06:44] LABS: BASOPHILS ABSOLUTE AUTO 0.01 K/mm3 (0.00-0.23); BASOPHILS PERCENT AUTO 0 % (0-2); EOSINOPHILS ABSOLUTE AUTO 0.07 K/mm3 (0.00-0.68); EOSINOPHILS PERCENT AUTO 1 % (0-6); Hematocrit 35.7 % (37.0-53.0); Hemoglobin 11.6 g/dL (13.5-17.5); IMMATURE GRAN ABSOLUTE AUTO 0.06 K/mm3 (0.00-0.10); IMMATURE GRAN PERCENT AUTO 1 % (0-1); LYMPHOCYTES ABSOLUTE AUTO 0.88 K/mm3 (0.84-5.20); LYMPHOCYTES PERCENT AUTO 11 % (21-46); MONOCYTES ABSOLUTE AUTO 0.72 K/mm3 (0.16-1.47); MONOCYTES PERCENT AUTO 9 % (4-13); Mean Corpuscular HGB 30.7 pg (26.0-34.0); Mean Corpuscular HGB Conc 32.5 g/dL (31.5-36.5); Mean Corpuscular Volume 94 fL (80-100); Mean Platelet Volume 11.6 fL (9.1-12.4); NEUTROPHILS ABSOLUTE AUTO 6.18 K/mm3 (1.96-9.15); NEUTROPHILS PERCENT AUTO 78 % (41-73); Platelet Count 164 K/mm3 (150-400); RDW Coefficient Variation 15.9 % (11.7-14.2); RDW Standard Deviation 55.5 fL (35.1-46.3); Red Blood Cell Count 3.78 M/mm3 (4.30-5.90); White Blood Cell Count 7.92 K/mm3 (4.00-11.30)
[2021-02-13 07:01] LABS: Bun/Creatinine Ratio 13.5 (12.0-20.0); Calcium, Blood 9.5 mg/dL (8.5-10.1); Creatinine, Blood 1.33 mg/dL (0.60-1.20); Potassium, Blood 3.5 mmol/L (3.5-5.5)
[2021-02-13] MEDS ORDERED: Amiodarone HCl200 MG PO (11:03)
[2021-02-13] MEDS ORDERED: CLOP75 PO (11:04)
[2021-02-13] MEDS ORDERED: FISH OIL 1,2001 EAC1 PO (11:09)
--- NOTE | 2021-02-13 13:19 | NUR ---
DISCHARGE NOTE: PT A&O, PLEASANT WITH CARES. RIGHT RADIAL SITE WITH CLEAR DRESSING IN PLACE. NO EVIDENCE OF HEMATOMA OR BLEEDING. PT WAS HOOKED UP TO ZOLL WHILE ADMITTED. TRANSFERRED TO HIS HOME LIFE VEST PRIOR TO D/C. TELE AFIB 80-90S. ALL EDUCATION GIVEN ON RADIAL SITE PRECAUTIONS. VSS ON RA, BP ELEVATED IN AM AND PO SCHEDULED MEDS GIVEN.
== END 2021-02-13 12:25 | disposition home or self-care (01) ==
LOC: MHTC 07:05 → PCU 10:21 → MHTC 02-13 12:25
PROVIDERS: Internal Medicine Cardiovascular Disease
PROC: 027034Z Dilation of Coronary Artery, One Artery with Drug-eluting Intraluminal Device, Percutaneous Approach (ICD-10-PCS; principal; 2021-02-12)
DX: I25.118 Atherosclerotic heart disease of native coronary artery with other forms of angina pectoris (principal); I48.91 Unspecified atrial fibrillation; I25.5 Ischemic cardiomyopathy; E78.5 Hyperlipidemia, unspecified; E03.9 Hypothyroidism, unspecified; I12.9 Hypertensive chronic kidney disease with stage 1 through stage 4 chronic kidney disease, or unspecified chronic kidney disease; N18.9 Chronic kidney disease, unspecified; Z95.1 Presence of aortocoronary bypass graft; Z88.2 Allergy status to sulfonamides; Z88.8 Allergy status to other drugs, medicaments and biological substances; Z88.5 Allergy status to narcotic agent; Z79.899 Other long term (current) drug therapy
CPT/HCPCS: 36415; 76937; 80048; 85025; 85347; 93005; 93010; 93571; 93572; 99152; 99153; A9270; C1725; C1769; C1874; C1887; C1894; C9600; J0360; J1644; J2250; J2405; J3010; J7030; J7040; J7050; Q9967

== ENCOUNTER 2021-05-09 11:03 | Day surgery (SDC) | payer MEDICARE, OTHER ==
[~2021-05-09] VITALS: Ht 172.7 cm; Wt 83.5 kg
[~2021-05-09 11:03] MED LIST changes: +Amlodipine Bes2.5 MG PO; +FISH OIL 1,2001 EAC1 PO; +LOSA25 PO; +Vitamin D1000 UNI1
--- NOTE | 2021-05-09 13:29 | NUR ---
PATIENT RETURNED FROM THE [facility]ATH[facility] S/P ICD IMPLANT. LEFT SHOULDER SITE WITH DRESSING. CDI, NO BLEEDING NO HEMATOMA NOTED. PLACED ON THE MONITOR. VVS. SITTING UP IN THE BED. PHONED AND GAVE AN UPDATE ON THE PATIENT AND PLAN OF CARE.
--- NOTE | 2021-05-09 13:47 | NUR ---
DR. RAY AT [facility] AND SPOKE WITH THE PATIENT AND THE (VIA PHONE).
--- NOTE | 2021-05-09 16:02 | NUR ---
XRAY AND EKG DONE AND REVIEWED BY DR. RAY. PATIENT DENIES ANY PAIN AT THIS TIME. DR. RAY CAME BY AND SPOKE WITH THE PATIENT.
--- NOTE | 2021-05-09 16:49 | NUR ---
POST ANTIBIOTIC GIVEN ORDERED. PIV REMOVED, CATH TIP INTACT. DISCHARGE INSTRUCTIONS REVEIWED WITH THE PAITENT AND COPIES GIVEN. PATIENT DISCHARGED VIA WHEELCHAIR TO .
== END 2021-05-09 17:10 | disposition home or self-care (01) ==
LOC: MHTC 11:03
DX: I25.5 Ischemic cardiomyopathy (principal); I25.810 Atherosclerosis of coronary artery bypass graft(s) without angina pectoris; I48.0 Paroxysmal atrial fibrillation; I12.9 Hypertensive chronic kidney disease with stage 1 through stage 4 chronic kidney disease, or unspecified chronic kidney disease; N18.4 Chronic kidney disease, stage 4 (severe); K21.9 Gastro-esophageal reflux disease without esophagitis; Z95.1 Presence of aortocoronary bypass graft; Z79.01 Long term (current) use of anticoagulants; Z79.02 Long term (current) use of antithrombotics/antiplatelets; Z88.2 Allergy status to sulfonamides; Z88.5 Allergy status to narcotic agent; Z88.8 Allergy status to other drugs, medicaments and biological substances
CPT/HCPCS: 33249; 71046; 93005; 93010; 99152; 99153; A9270; C1722; J0690; J1644; J2250; J3010; J7030; J7040

== ENCOUNTER → 2023-10-06 | Outpatient (CLI) | payer MEDICARE, OTHER ==
[2023-10-06 17:12] LABS: Adenovirus F 40/41 Not Detected (NOT DETECT); Astrovirus Not Detected (NOT DETECT); Campylobacter Sp Not Detected (NOT DETECT); Cryptosporidium Not Detected (NOT DETECT); Cyclospora Cayetanensis Not Detected (NOT DETECT); E. Coli O157 Not Detected (NOT DETECT); Entamoeba Histolytica Not Detected (NOT DETECT); Enteroaggregative E. coli-EAEC Not Detected (NOT DETECT); Enteropathogenic E. coli-EPEC Not Detected (NOT DETECT); Enterotoxigenic E. coli-ETEC Not Detected (NOT DETECT); Giardia Lamblia Not Detected (NOT DETECT); Norovirus GI/GII Not Detected (NOT DETECT); Plesiomonas Shigelloides Not Detected (NOT DETECT); Rotavirus A Not Detected (NOT DETECT); Salmonella Sp Not Detected (NOT DETECT); Sapovirus Not Detected (NOT DETECT); Shiga Toxin-prod E. coli-STEC Not Detected (NOT DETECT); Shigella/Enteroin E. coli-EIEC Not Detected (NOT DETECT); Vibrio Cholerae Not Detected (NOT DETECT); Vibrio Sp Not Detected (NOT DETECT); Yersinia Enterocolitica Not Detected (NOT DETECT)
== END ==
LOC: LAB 14:26 → LAB SHORT 14:26
PROVIDERS: Family Medicine
DX: R19.7 Diarrhea, unspecified (principal)
CPT/HCPCS: 87507

== ENCOUNTER 2024-01-04 08:34 | Day surgery (SDC) | payer MEDICARE, OTHER ==
[2024-01-04] VITALS (12 sets, daily range): BP systolic 114–167; BP diastolic 57–100
[~2024-01-04] VITALS: Ht 172.7 cm; Wt 84.1 kg
[2024-01-04] MEDS ORDERED: CeFAZolin Sodium 2,000 MG in NS 100 ML IV SCH (10:10)
[2024-01-04] MEDS ORDERED: Lactated Ringer's 1,000 ML IV SCH (10:10)
[2024-01-04] MEDS ORDERED: Bupivacaine 0.5% HCl 5 MG/ML 30MLVIAL ONE (10:30)
--- NOTE | 2024-01-04 10:35 | NUR ---
Ambulatory in Day Surgery History, Chart, Medications and Allergies reviewed before start of procedure. Pt has ICD-anesthesia aware.Lungs clear T/O to Auscultation. Patient confirms NPO status and agrees with scheduled surgery. Patient reports completing Chlorhexadine shower X2 prior to admission to hospital.Surgical site prepped with 2% Chlorhexidine cloth wipe. Patient States Post-Procedure ride home has been arranged.
[2024-01-04] MEDS ORDERED: Phenylephrine HCl 10mg/ml 1 ml Vial ONE (10:52)
--- NOTE | 2024-01-04 10:54 | NUR ---
Pt Deanna has pt glasses. Pt clothing is in belongings bag under the gurney.
[2024-01-04] MEDS ORDERED: Rocuronium Bromide 10 MG/ML 5ML Injection IV ONE ×2 (11:00→11:27)
[2024-01-04] MEDS ORDERED: Dexamethasone Sod Phos 10 MG/ML 1ML VIAL ONE (11:10)
[2024-01-04] MEDS ORDERED: FentaNYL Citrate 50 MCG/ML 2 ML Injection ONE (11:10)
[2024-01-04] MEDS ORDERED: Phenylephrine HCl 100 MCG/ML-NS 10MLSYR (1MG/10ML) ONE (11:15)
[2024-01-04] MEDS ORDERED: Ondansetron HCl 2 MG / ML 2ML Vial ONE (12:08)
[2024-01-04] MEDS ORDERED: Sugammadex Sodium 200 MG/2ML SDV (100 MG/ML) ONE (12:08)
[2024-01-04] MEDS ORDERED: HYDROmorphone HCl/Pf 1MG SYR ONE (12:20)
[2024-01-04] MEDS ORDERED: TraMADol HCl 50 MG Tab PO ONE (12:40)
[2024-01-04] MEDS ORDERED: HYDROmorphone HCl/Pf 1MG SYR IV PRN (13:00)
[2024-01-04] MEDS ORDERED: Metoclopramide HCl 5MG / ML 2ML Vial IV PRN (13:00)
[2024-01-04] MEDS ORDERED: FentaNYL Citrate 50 MCG/ML 2 ML Injection IV PRN ×3 (13:00→13:05)
--- NOTE | 2024-01-04 14:10 | NUR ---
Patient up to Ambulate independently. Gait steady. Discharge instructions reviewed with patient. Patient verbalizes understanding. Copy given to patient to take home. Discharged via wheelchair to private car for ride home.
== END 2024-01-04 14:11 | disposition home or self-care (01) ==
LOC: ORSCMMR 08:34 → ORD 10:00 → ORSCMMR 10:00
PROVIDERS: Surgery
PROC: 0FT44ZZ Resection of Gallbladder, Percutaneous Endoscopic Approach (ICD-10-PCS; principal; 2024-01-04 10:00)
DX: K80.10 Calculus of gallbladder with chronic cholecystitis without obstruction (principal); I48.91 Unspecified atrial fibrillation; Z79.01 Long term (current) use of anticoagulants; I25.10 Atherosclerotic heart disease of native coronary artery without angina pectoris; I50.9 Heart failure, unspecified; I27.20 Pulmonary hypertension, unspecified; Z79.02 Long term (current) use of antithrombotics/antiplatelets; I12.9 Hypertensive chronic kidney disease with stage 1 through stage 4 chronic kidney disease, or unspecified chronic kidney disease; N18.9 Chronic kidney disease, unspecified; E03.9 Hypothyroidism, unspecified; Z79.899 Other long term (current) drug therapy
CPT/HCPCS: 88304; A9270; J0690; J1100; J1170; J2371; J2405; J3010; J7120

== ENCOUNTER 2024-06-14 07:29 | Day surgery (SDC) | payer MEDICARE, OTHER ==
[~2024-06-14] VITALS: Ht 172.7 cm; Wt 83.5 kg
[2024-06-14] MEDS ORDERED: propofoL 50 ML IV ONE (07:37)
[2024-06-14] MEDS ORDERED: Lactated Ringer's 1,000 ML IV ONE ×2 (07:37→08:14)
[2024-06-14 09:23] VITALS: BP 130/83
== END 2024-06-14 09:30 | disposition home or self-care (01) ==
LOC: ORSCSDS 07:29
PROVIDERS: Surgery
PROC: 0DJD8ZZ Inspection of Lower Intestinal Tract, Via Natural or Artificial Opening Endoscopic (ICD-10-PCS; principal; 2024-06-14 08:45)
DX: Z12.11 Encounter for screening for malignant neoplasm of colon (principal); K64.4 Residual hemorrhoidal skin tags; K57.30 Diverticulosis of large intestine without perforation or abscess without bleeding; Z86.0101 Personal history of adenomatous and serrated colon polyps; I48.0 Paroxysmal atrial fibrillation; F41.9 Anxiety disorder, unspecified; N40.0 Benign prostatic hyperplasia without lower urinary tract symptoms; I25.10 Atherosclerotic heart disease of native coronary artery without angina pectoris; I50.32 Chronic diastolic (congestive) heart failure; I10 Essential (primary) hypertension; K21.9 Gastro-esophageal reflux disease without esophagitis; E03.9 Hypothyroidism, unspecified; D69.6 Thrombocytopenia, unspecified; Z79.01 Long term (current) use of anticoagulants; Z79.899 Other long term (current) drug therapy
CPT/HCPCS: J2704; J7120

== ENCOUNTER 2024-12-11 09:10 | Inpatient (IN) | payer MEDICARE, OTHER ==
[~2024-12-11] VITALS: Ht 172.7 cm; Wt 76.0 kg
[2024-12-11 09:49] LABS: BASOPHILS ABSOLUTE AUTO 0.02 K/mm3 (0.00-0.23); BASOPHILS PERCENT AUTO 0 % (0-2); EOSINOPHILS ABSOLUTE AUTO 0.10 K/mm3 (0.00-0.68); EOSINOPHILS PERCENT AUTO 1 % (0-6); Hematocrit 28.5 % (37.0-53.0); Hemoglobin 9.2 g/dL (13.5-17.5); IMMATURE GRAN ABSOLUTE AUTO 0.27 K/mm3 (0.00-0.10); IMMATURE GRAN PERCENT AUTO 3 % (0-1); LYMPHOCYTES ABSOLUTE AUTO 0.84 K/mm3 (0.84-5.20); LYMPHOCYTES PERCENT AUTO 8 % (21-46); MONOCYTES ABSOLUTE AUTO 1.08 K/mm3 (0.16-1.47); MONOCYTES PERCENT AUTO 10 % (4-13); Mean Corpuscular HGB Conc 32.3 g/dL (31.5-36.5); Mean Corpuscular Volume 84 fL (80-100); NEUTROPHILS ABSOLUTE AUTO 8.32 K/mm3 (1.96-9.15); NEUTROPHILS PERCENT AUTO 78 % (41-73); NRBC ABSOLUTE 0.00 K/mm3 (0.00-0.02); NRBC Auto 0.0 /100 WBC (0.0-0.2); Platelet Count 195 K/mm3 (150-400); RDW Coefficient Variation 19.6 % (11.7-14.2); RDW Standard Deviation 58.2 fL (35.1-46.3)
[2024-12-11 10:01] LABS: Alanine Aminotransfer (ALT/SGP 33.0 U/L (12-78); Albumin, Blood 2.9 g/dL (3.4-5.0); Albumin/Globulin Ratio 0.6 (0.8-1.8); Anion Gap 13.0 mmol/L (3-11); Aspartate Aminotrans (AST/SGOT 23.0 U/L (12-37); Bilirubin, Total 1.5 mg/dL (0.1-1.0); Blood Urea Nitrogen 36.0 mg/dL (8-24); CO2, Blood 22.0 mmol/L (21-32); Calcium, Blood 9.1 mg/dL (8.5-10.1); Chloride, Blood 101.0 mmol/L (98-108); Creatinine, Blood 1.74 mg/dL (0.60-1.20); Globulin, Blood 4.7 g/dL (2.2-4.0); Glucose, Blood 138.0 mg/dL (70-99); Potassium, Blood 3.9 mmol/L (3.5-5.5); Sodium, Blood 132.0 mmol/L (136-145); Total Protein, Blood 7.6 g/dL (6.4-8.2)
[2024-12-11] MEDS ORDERED: Furosemide 10 MG / ML 2ML Vial IV ONE (10:40)
[2024-12-11 11:52] LABS: CORONAVIRUS COVID-19 AG Negative (NEGATIVE)
[2024-12-11] MEDS ORDERED: Magnesium Hydroxide Conc 10 ML UDC PO PRN (12:00)
[2024-12-11] MEDS ORDERED: Diltiazem HCl 5 MG / ML 5ML Vial IV ONE ×2 (12:05→22:00)
[2024-12-11 13:55] VITALS: BP 153/109
[2024-12-11] MEDS ORDERED: BUME1 PO (14:23)
[2024-12-11] MEDS ORDERED: ALBU2.5V5 INH (14:24)
[2024-12-11] MEDS ORDERED: Flonase 0.05% N16 GM (14:25)
[2024-12-11] MEDS ORDERED: MAGNESIUM OXID500 MG PO (14:28)
[2024-12-11 17:42] VITALS: BP 111/89
--- NOTE | 2024-12-11 19:07 | NUR ---
SHIFT SUMMARY PATIENT AOX4 ABLE TO MAKE NEEDS KNOWN DENIES CHEST PAIN OR SOB. HE IS INDEPENDENT TO THE REST ROOM AND TOLERATING HIS MEALS. VITALS ARE STABLE HR 90-110S AT REST AND UP TO 150s WITH AMBULATION.
[2024-12-11 19:37] VITALS: BP 157/108
[2024-12-11 21:24] VITALS: BP 148/112
[2024-12-11 23:03] VITALS: BP 143/87
[2024-12-12] VITALS (8 sets, daily range): BP systolic 124–168; BP diastolic 78–117
[2024-12-12 04:09] LABS: Anion Gap 11.0 mmol/L (3-11); Blood Urea Nitrogen 41.0 mg/dL (8-24); CO2, Blood 25.0 mmol/L (21-32); Calcium, Blood 9.3 mg/dL (8.5-10.1); Chloride, Blood 98.0 mmol/L (98-108); Creatinine, Blood 1.89 mg/dL (0.60-1.20); Glucose, Blood 117.0 mg/dL (70-99); Potassium, Blood 3.9 mmol/L (3.5-5.5); Sodium, Blood 130.0 mmol/L (136-145)
--- NOTE | 2024-12-12 06:06 | NUR ---
SHIFT SUMMARY PT IS A&O X4, FORGETFUL AND ANXIOUS AT TIMES/ BED ALARM PLACED, ABLE TO MAKE NEEDS KNOWN, MOVING ALL EXTREMITIES WITH PURPOSE, PREPOSITIONING SELF IN BED, IND IN ROOM. CONTINUOUS SPO2, SPO2 GREATER 92% ON RA OR 2L NC NEEDED/ THE MAJORITY OF THE SHIFT PT ON RA, LUNGS SOUND CLEAR T/O WITH CRACKLES IN THE BASES, NO SIGNS OF RESPIRATORY DISTRESS NOTED T/O THIS SHIFT, PT REPORTS SOB WITH ACTIVITY. CONTINUOUS TELE MONITORING, AFIB 90-110 S WHILE AT REST AND 120-140 S WITH ACTIVITY, PULSES PRESENT T/O, PT DENIES CHEST P/P T/O THIS SHIFT, BP STABLE WITH MAP GREATER THAN 65. BOWEL TONES PRESENT IN ALL 4Q, PT DENIES FEELINGS OF NAUSEA, OR CONSTIPATION. CONTINENT OF URINE, USING URINAL IND PT STATED FEELING ANXIOUS AND SOB @ APPROX 2130, PT HR 130 S, MADE AWARE AND NEW ORDERS PLACED, 1 PUSH OF CARDIZEM GIVEN. BED LOWEST POSITION, CALL LIGHT IN REACH, AWAITING TO GIVE REPORT TO ONCOMING RN.
[2024-12-12] MEDS ORDERED: Digoxin 0.25 MG in NS 4 ML IV SCH (12:00)
[2024-12-12 15:28] LABS: Magnesium, Blood 2.2 mg/dL (1.6-2.4); Thyroid Stimulating Hormone 1.61 uIU/mL (0.360-4.800)
--- NOTE | 2024-12-12 19:43 | NUR ---
SHIFT SUMMARY PATIENT WAS AOX4 ABLE TO MAKE NEEDS KNOWN DENIES CP OR SOB. HIS VITALS WERE STABLE EXCEPT HIS HR WAS TACHY FROM 100-120s HOSPITALIST KALEIGH KNOX IV. PATIENT INDEPENDENT IN ROOM TO THE RESTROOM AND TOLERATING HIS MEALS. HIS AT BESIDE. AROUND 1549 THE PATIENT HAD A FALL TRYING TO VOID WITH HIS URINAL AND IN THE ROOM. NO STAFF WAS IN THE ROOM AT THE TIME OF FALL. THE PATIENT STATED HE HIT HIS HEAD THE HOSPITALIST WAS AWARE AND PUT IN ORDERS. POST FALL PATIENT WAS A0X4 WITH SOME PAIN TO HIS FOREHEAD AND FACE VITALS REMAINED STABLE. PATIENT NOW ON BED ALARM.
[2024-12-12] MEDS ORDERED: Digoxin 0.25 MG in NS 4 ML IV ONE (22:00)
[2024-12-13 04:09] VITALS: BP 138/85
[2024-12-13 05:17] LABS: BASOPHILS ABSOLUTE AUTO 0.03 K/mm3 (0.00-0.23); BASOPHILS PERCENT AUTO 0 % (0-2); EOSINOPHILS ABSOLUTE AUTO 0.16 K/mm3 (0.00-0.68); EOSINOPHILS PERCENT AUTO 2 % (0-6); Hematocrit 31.7 % (37.0-53.0); Hemoglobin 10.1 g/dL (13.5-17.5); IMMATURE GRAN ABSOLUTE AUTO 0.28 K/mm3 (0.00-0.10); IMMATURE GRAN PERCENT AUTO 3 % (0-1); LYMPHOCYTES ABSOLUTE AUTO 1.13 K/mm3 (0.84-5.20); LYMPHOCYTES PERCENT AUTO 11 % (21-46); MONOCYTES ABSOLUTE AUTO 1.15 K/mm3 (0.16-1.47); MONOCYTES PERCENT AUTO 11 % (4-13); Mean Corpuscular HGB Conc 31.9 g/dL (31.5-36.5); Mean Corpuscular Volume 86 fL (80-100); NEUTROPHILS ABSOLUTE AUTO 7.86 K/mm3 (1.96-9.15); NEUTROPHILS PERCENT AUTO 74 % (41-73); NRBC ABSOLUTE 0.00 K/mm3 (0.00-0.02); NRBC Auto 0.0 /100 WBC (0.0-0.2); Platelet Count 207 K/mm3 (150-400); RDW Coefficient Variation 19.5 % (11.7-14.2); RDW Standard Deviation 58.3 fL (35.1-46.3)
[2024-12-13 05:55] LABS: Anion Gap 11.0 mmol/L (3-11); Blood Urea Nitrogen 42.0 mg/dL (8-24); CO2, Blood 26.0 mmol/L (21-32); Calcium, Blood 9.4 mg/dL (8.5-10.1); Chloride, Blood 98.0 mmol/L (98-108); Creatinine, Blood 2.02 mg/dL (0.60-1.20); Glucose, Blood 87.0 mg/dL (70-99); Potassium, Blood 3.4 mmol/L (3.5-5.5); Sodium, Blood 132.0 mmol/L (136-145)
--- NOTE | 2024-12-13 06:21 | NUR ---
SHIFT SUMMARY PT IS A&O X2-3, FORGETFUL AND ANXIOUS AT TIMES/ BED ALARM PLACED, ABLE TO MAKE NEEDS KNOWN, MOVING ALL EXTREMITIES WITH PURPOSE, PREPOSITIONING SELF IN BED, SBA TO BATHROOM. SPO2 GREATER 92% ON RA OR 2L NC NEEDED, LUNGS SOUND CLEAR T/O WITH CRACKLES RLL, NO SIGNS OF RESPIRATORY DISTRESS NOTED T/O THIS SHIFT, PT REPORTS SOB WITH ACTIVITY BTU STATES IT FEELS IMPROVED. CONTINUOUS TELE MONITORING, AFIB 60-80 S WHILE AT REST/ OCCATIOLANNLLY PT TOUCHED 50 S WHILE SLEEPING BUT DID NOT SUSTAIN, PULSES PRESENT T/O, PT DENIES CHEST P/P T/O THIS SHIFT, BP STABLE WITH MAP GREATER THAN 65. BOWEL TONES PRESENT IN ALL 4Q, PT DENIES FEELINGS OF NAUSEA, OR CONSTIPATION. CONTINENT OF URINE, URINE YELLOW. BED LOWEST POSITION, CALL LIGHT IN REACH, AWAITING TO GIVE REPORT TO ONCOMING RN
[2024-12-13 08:22] VITALS: BP 149/86
[2024-12-13 12:43] VITALS: BP 128/79
[2024-12-13] MEDS ORDERED: DIGOX125 MC1 PO (14:15)
[2024-12-13] MEDS ORDERED: POTCIT10 PO (14:15)
--- NOTE | 2024-12-13 16:52 | NUR ---
SHIFT SUMMARY/ DISCHARGE PATIENT AOX4 ABLE TO MAKE NEEDS KNOWN DENIES CP OR SOB. TOLERATING MEALS AND WALKING IN THE ROOM WITH SBA. VITALS ARE STABLE. HOSPITALIST SPOKE TO PATIENT AND AT BEDSIDE. EDUCATED PATIENT AND ON DISCHARGE INSTRUCTIONS THEY HAVE NO FURTHER QUESTIONS.
== END 2024-12-13 16:05 | disposition home or self-care (01) | DRG 291 ==
LOC: ER 09:10 → ERHOLD 09:11 → PCU 09:11
PROVIDERS: Emergency Medicine; Family Medicine; ADMIT Hospitalist
DX: I13.0 Hypertensive heart and chronic kidney disease with heart failure and stage 1 through stage 4 chronic kidney disease, or unspecified chronic kidney disease (principal); I50.23 Acute on chronic systolic (congestive) heart failure; E87.1 Hypo-osmolality and hyponatremia; N17.9 Acute kidney failure, unspecified; I25.10 Atherosclerotic heart disease of native coronary artery without angina pectoris; I48.91 Unspecified atrial fibrillation; E03.9 Hypothyroidism, unspecified; Z95.1 Presence of aortocoronary bypass graft; D63.1 Anemia in chronic kidney disease; N18.9 Chronic kidney disease, unspecified; F41.9 Anxiety disorder, unspecified; G47.8 Other sleep disorders; Z98.890 Other specified postprocedural states; Z88.5 Allergy status to narcotic agent; Z88.2 Allergy status to sulfonamides; Z88.8 Allergy status to other drugs, medicaments and biological substances; Z79.01 Long term (current) use of anticoagulants; Z79.890 Hormone replacement therapy; Z79.899 Other long term (current) drug therapy
CPT/HCPCS: 36415; 70450; 71046; 80048; 80053; 83735; 83880; 84300; 84443; 84484; 85025; 87428-QW; 93005; 93010; 94761; 94762; 96374; 96375; 96376; 97161; 99285-25; A9270; G0378; J1160; J1938